=== PATIENT | male | born 1940 | race African-American/Black ===

== ENCOUNTER 2021-05-19 19:43 | Inpatient (IN) | payer BC ==
[~2021-05-19] VITALS: Ht 170.2 cm; Wt 61.2 kg
[2021-05-19 22:06] LABS: BASOPHILS % 0.5 % (0.0-2.0); EOSINOPHILS % 0.5 % (0.0-5.0); HEMATOCRIT. 36.8 % (42.0-52.0); LYMPHOCYTES % 22.6 % (20.0-50.0); MEAN CORPUSCULAR HEMOGLOBIN 29.9 pg (28.0-32.0); MEAN CORPUSCULAR VOLUME 91.8 fL (80.0-94.0); MEAN PLATELET VOLUME 9.2 fl (7.4-10.4); MONOCYTES % 9.4 % (2.0-8.0); PLATELET 214 x1000/uL (130-400); RED BLOOD CELL COUNT 4.01 mill/uL (4.7-6.1); RED CELL DISTRIBUTION WIDTH 13.3 % (11.6-14.6)
[2021-05-19 22:09] LABS: CHLORIDE 112 mEq/L (98-107)
[2021-05-20] MEDS ORDERED: DOCUSATE SODIUM 100MG CAPSULE PO PRN (00:45)
[2021-05-20] MEDS ORDERED: HYDROCODONE/ACETAMINOPHEN 5/325MG TABLET PO PRN (00:45)
[2021-05-20] MEDS ORDERED: ACETAMINOPHEN 325MG TABLET PO PRN (00:45)
[2021-05-20] MEDS ORDERED: CLONIDINE 0.1MG TABLET PO PRN (00:45)
[2021-05-20] MEDS ORDERED: ONDANSETRON HCL 4MG/2ML INJ IV PRN (00:45)
[2021-05-20] MEDS: SODIUM CHLORIDE 0.9% 1,000 ML IV SCH ×2 (01:00→14:05)
[2021-05-20] MEDS ORDERED: ENOXAPARIN 30MG/0.3ML SYR SUBCUT SCH (01:30)
[2021-05-20] MEDS: ENOXAPARIN 30MG/0.3ML SYR SUBCUT SCH (02:36)
[2021-05-20 08:00] VITALS: BP 145/80
[2021-05-20 12:00] VITALS: BP 155/65
[2021-05-20] MEDS ORDERED: SERT50TA MT (12:04)
[2021-05-20] MEDS ORDERED: ASPI-1497 MT (12:06)
[2021-05-20] MEDS ORDERED: PNEUMOCOCCAL 23-VAL P-SAC VAC 0.5 ML IM ONE (12:30)
[2021-05-20] MEDS ORDERED: LOSA50TA41 MT (13:22)
[2021-05-20] MEDS ORDERED: QUET50TA23 PO (13:35)
[2021-05-20] MEDS ORDERED: MELA10TA PO (13:35)
[2021-05-20] MEDS ORDERED: LOPHC2 MT (13:35)
[2021-05-20] MEDS ORDERED: MIRT7.5T11 PO (13:35)
[2021-05-20] MEDS ORDERED: DONE23TA3 MT (13:35)
[2021-05-20] MEDS: AMLODIPINE 5MG TABLET PO SCH ×2 (14:57→21:00)
[2021-05-20] MEDS: LORAZEPAM 2MG/ML CPJ IM PRN (15:19)
[2021-05-20 16:00] VITALS: BP 159/68
[2021-05-20 20:00] VITALS: BP 165/80
[2021-05-21] VITALS (9 sets, daily range): BP systolic 123–167; BP diastolic 67–94
[2021-05-21] MEDS: LORAZEPAM 2MG/ML CPJ IM PRN ×4 (00:01→08:47)
[2021-05-21] MEDS: ENOXAPARIN 30MG/0.3ML SYR SUBCUT SCH (02:12)
[2021-05-21] MEDS: SODIUM CHLORIDE 0.9% 1,000 ML IV SCH ×2 (02:13→20:56)
[2021-05-21 07:40] LABS: BASOPHILS % 0.5 % (0.0-2.0); EOSINOPHILS % 0.3 % (0.0-5.0); HEMATOCRIT. 43.8 % (42.0-52.0); HEMOGLOBIN. 14.7 g/dL (14.0-18.0); LYMPHOCYTES % 27.3 % (20.0-50.0); MEAN CORPUSCULAR HEMOGLOBIN 30.4 pg (28.0-32.0); MEAN CORPUSCULAR VOLUME 90.6 fL (80.0-94.0); MEAN PLATELET VOLUME 9.7 fl (7.4-10.4); MONOCYTES % 10.2 % (2.0-8.0); NEUTROPHILS % 61.7 % (40.0-76.0); PLATELET 268 x1000/uL (130-400); RED BLOOD CELL COUNT 4.84 mill/uL (4.7-6.1); RED CELL DISTRIBUTION WIDTH 13.5 % (11.6-14.6)
[2021-05-21 07:45] LABS: CHLORIDE 108 mEq/L (98-107)
[2021-05-21 08:07] LABS: LDL CHOLESTEROL 87 mg/dL (5-100)
[2021-05-21 08:09] LABS: HDL CHOLESTEROL 90 mg/dL (40-59); T4 FREE 1.25 ng/dL (0.76-1.46)
[2021-05-21] MEDS ORDERED: SERTRALINE HCL 50MG TABLET PO SCH (09:00)
[2021-05-21] MEDS ORDERED: METOPROLOL TARTRATE 100MG TABLET PO SCH (09:00)
[2021-05-21] MEDS ORDERED: LOSARTAN POTASSIUM 50 MG TABLET PO SCH (09:00)
[2021-05-21] MEDS ORDERED: QUETIAPINE FUMARATE 25MG TABLET PO SCH (09:00)
[2021-05-21] MEDS: ASPIRIN 81MG TABLET PO SCH (09:05)
[2021-05-21] MEDS: SERTRALINE HCL 50MG TABLET PO SCH ×2 (09:05→09:10)
[2021-05-21] MEDS: HYDROCHLOROTHIAZIDE 25MG TABLET PO SCH (09:06)
[2021-05-21] MEDS: AMLODIPINE 5MG TABLET PO SCH ×2 (09:14→20:59)
[2021-05-21] MEDS ORDERED: LORAZEPAM 2MG/ML CPJ IV NR (16:45)
[2021-05-21] MEDS: ARIPIPRAZOLE 2MG TABLET PO SCH (20:58)
[2021-05-21] MEDS ORDERED: DONEPEZIL HCL 5MG TABLET PO SCH (21:00)
[2021-05-22] VITALS: BP 150/73
[2021-05-22] MEDS: ENOXAPARIN 30MG/0.3ML SYR SUBCUT SCH (01:44)
[2021-05-22 04:00] VITALS: BP 173/96
[2021-05-22] MEDS: SODIUM CHLORIDE 0.9% 1,000 ML IV SCH (06:03)
[2021-05-22 08:17] LABS: VITAMIN B12 SERUM 971 pg/mL (211-911)
[2021-05-22] MEDS: ARIPIPRAZOLE 2MG TABLET PO SCH (09:00)
[2021-05-22] MEDS: AMLODIPINE 5MG TABLET PO SCH ×2 (09:49→20:57)
[2021-05-22] MEDS: ASPIRIN 81MG TABLET PO SCH (09:49)
[2021-05-22] MEDS: HYDROCHLOROTHIAZIDE 25MG TABLET PO SCH (09:49)
[2021-05-22] MEDS: SERTRALINE HCL 50MG TABLET PO SCH (09:50)
[2021-05-22 16:00] VITALS: BP 143/82
[2021-05-22] MEDS: LORAZEPAM 2MG/ML CPJ IM PRN (18:13)
[2021-05-22 20:00] VITALS: BP 172/97
[2021-05-22] MEDS: ARIPIPRAZOLE 5MG TABLET PO SCH (20:58)
[2021-05-23] VITALS: BP 140/82
[2021-05-23] MEDS: ENOXAPARIN 30MG/0.3ML SYR SUBCUT SCH (03:00)
[2021-05-23 04:00] VITALS: BP 155/97
[2021-05-23 08:00] VITALS: BP 142/95
[2021-05-23] MEDS: LORAZEPAM 2MG/ML CPJ IM PRN ×2 (08:49→21:14)
[2021-05-23] MEDS: ASPIRIN 81MG TABLET PO SCH (08:50)
[2021-05-23] MEDS: HYDROCHLOROTHIAZIDE 25MG TABLET PO SCH (08:50)
[2021-05-23] MEDS: ARIPIPRAZOLE 5MG TABLET PO SCH ×2 (08:50→21:13)
[2021-05-23] MEDS: SERTRALINE HCL 50MG TABLET PO SCH (08:50)
[2021-05-23] MEDS: AMLODIPINE 5MG TABLET PO SCH ×2 (08:50→21:14)
[2021-05-23] MEDS: LOSARTAN POTASSIUM 100 MG TABLET PO SCH (08:50)
[2021-05-23 12:00] VITALS: BP 155/89
[2021-05-23 16:00] VITALS: BP 144/80
[2021-05-23 20:00] VITALS: BP 149/85
[2021-05-24] VITALS: BP 158/91
[2021-05-24] MEDS: ENOXAPARIN 30MG/0.3ML SYR SUBCUT SCH (02:40)
[2021-05-24 04:00] VITALS: BP 139/78
[2021-05-24 08:00] VITALS: BP 140/86
[2021-05-24] MEDS: LOSARTAN POTASSIUM 100 MG TABLET PO SCH (08:46)
[2021-05-24] MEDS: ARIPIPRAZOLE 5MG TABLET PO SCH ×2 (08:46→20:45)
[2021-05-24] MEDS: HYDROCHLOROTHIAZIDE 25MG TABLET PO SCH (08:46)
[2021-05-24] MEDS: ASPIRIN 81MG TABLET PO SCH (08:46)
[2021-05-24] MEDS: SERTRALINE HCL 50MG TABLET PO SCH (08:46)
[2021-05-24] MEDS: AMLODIPINE 5MG TABLET PO SCH ×2 (08:46→20:45)
[2021-05-24 12:00] VITALS: BP 135/81
[2021-05-24 16:00] VITALS: BP 130/76
[2021-05-24 20:00] VITALS: BP 120/61
[2021-05-24] MEDS: LORAZEPAM 2MG/ML CPJ IM PRN (23:23)
[2021-05-25] VITALS: BP 133/73
[2021-05-25] MEDS: ENOXAPARIN 30MG/0.3ML SYR SUBCUT SCH (03:00)
[2021-05-25 04:00] VITALS: BP 125/75
[2021-05-25 08:00] VITALS: BP 117/69
[2021-05-25] MEDS: ASPIRIN 81MG TABLET PO SCH (09:00)
[2021-05-25] MEDS: ARIPIPRAZOLE 5MG TABLET PO SCH (09:00)
[2021-05-25] MEDS: HYDROCHLOROTHIAZIDE 25MG TABLET PO SCH (09:00)
[2021-05-25] MEDS: LOSARTAN POTASSIUM 100 MG TABLET PO SCH (09:00)
[2021-05-25] MEDS: MULTIVITAMINS,THER W-MINERALS TABLET PO SCH ×2 (09:00→09:01)
[2021-05-25] MEDS: AMLODIPINE 5MG TABLET PO SCH (09:01)
[2021-05-25] MEDS: SERTRALINE HCL 50MG TABLET PO SCH (09:01)
[2021-05-25] MEDS ORDERED: AMLO10TA4 MT (11:12)
[2021-05-25] MEDS ORDERED: SERT50TA MT (11:13)
[2021-05-25] MEDS ORDERED: AMLO10TA4 PO (11:14)
[2021-05-25 11:17] VITALS: BP 117/69
== END 2021-05-25 12:06 | disposition home or self-care (01) | DRG 73 ==
LOC: ER 19:43 → 8WST 22:13 → ENRESERV 05-20 07:18
PROVIDERS: ADMIT Hospitalist; ATTEND Hospitalist
DX: G90.8 Other disorders of autonomic nervous system (principal); N17.0 Acute kidney failure with tubular necrosis; F02.81 Dementia in other diseases classified elsewhere, unspecified severity, with behavioral disturbance; I95.9 Hypotension, unspecified; I11.9 Hypertensive heart disease without heart failure; G30.9 Alzheimer's disease, unspecified; Z79.82 Long term (current) use of aspirin; Z79.899 Other long term (current) drug therapy; Z78.1 Physical restraint status
CPT/HCPCS: 36415; 71045; 80053; 80061; 82607; 83880; 84439; 84443; 84484; 85025; 90732; 93005; 93306; 93970; 97162; 99285; J1650; J2060

== ENCOUNTER 2021-05-26 20:03 | Inpatient (IN) | payer BC ==
[~2021-05-26] VITALS: Ht 170.2 cm; Wt 63.0 kg
[~2021-05-26 20:03] MED LIST: AMLO10TA4 MT; AMLO10TA4 PO; ASPI-1497 MT; DONE23TA3 MT; LOPHC2 MT; LOSA50TA41 MT; MELA10TA PO; MIRT7.5T11 PO; QUET50TA23 PO; SERT50TA MT
[2021-05-26] MEDS ORDERED: SODIUM CHLORIDE 0.9% 1,000 ML IV ONE (20:15)
[2021-05-26] MEDS ORDERED: LEVOFLOXACIN 500MG PREMIX 100 ML IV ONE (20:30)
[2021-05-26] MEDS ORDERED: SODIUM CHLORIDE 0.9% 1000ML BAG (SEPSIS BOLUS) IV ONE (20:30)
[2021-05-26] MEDS ORDERED: PIPERACILLIN/TAZ 3.375G PREMIX 50 ML IV ONE (20:30)
[2021-05-26 20:50] LABS: BASOPHILS % 0.4 % (0.0-2.0); EOSINOPHILS % 0.4 % (0.0-5.0); HEMATOCRIT. 39.6 % (42.0-52.0); HEMOGLOBIN. 13.1 g/dL (14.0-18.0); MEAN CORPUSCULAR HEMOGLOBIN 30.2 pg (28.0-32.0); MEAN CORPUSCULAR VOLUME 91.5 fL (80.0-94.0); MEAN PLATELET VOLUME 10.1 fl (7.4-10.4); MONOCYTES % 11.8 % (2.0-8.0); NEUTROPHILS % 52.4 % (40.0-76.0); PLATELET 224 x1000/uL (130-400); RED BLOOD CELL COUNT 4.33 mill/uL (4.7-6.1); RED CELL DISTRIBUTION WIDTH 13.6 % (11.6-14.6)
[2021-05-26 20:59] LABS: CHLORIDE 104 mEq/L (98-107)
[2021-05-26 21:00] LABS: PROTHROMBIN TIME 10.9 sec (9.6-11.0)
[2021-05-26] MEDS ORDERED: LORAZEPAM 2MG/ML CPJ IV ONE (21:00)
[2021-05-26 21:03] LABS: ETHANOL BLOOD < 10 mg/dL
[2021-05-26 22:02] LABS: CLARITY URINE CLEAR (CLEAR); COLOR URINE YELLOW (YELLOW); KETONES URINE NEGATIVE (NEGATIVE); LEUKOCYTE ESTERASE URINE NEGATIVE (NEGATIVE); NITRITE URINE NEGATIVE (NEGATIVE); OCCULT BLOOD URINE NEGATIVE (NEGATIVE); PROTEIN URINE TRACE (NEGATIVE); SPECIFIC GRAVITY URINE 1.016 (1.005-1.030); UROBILINOGEN URINE 0.2 E.U./dL (0.2-1.0)
[2021-05-26 22:20] LABS: *AMPHETAMINES SCREEN URINE NEGATIVE (NEGATIVE); *BARBITURATES SCREEN URINE NEGATIVE (NEGATIVE); *BENZODIAZEPINES SCREEN URINE NEGATIVE (NEGATIVE); *COCAINE SCREEN URINE NEGATIVE (NEGATIVE); CANNABINOID URINE SCREEN NEGATIVE (NEGATIVE); METHADONE URINE SCREEN NEGATIVE (NEGATIVE); OPIATES URINE SCREEN NEGATIVE (NEGATIVE); PHENCYCLIDINE URINE SCREEN NEGATIVE (NEGATIVE)
[2021-05-27] VITALS (8 sets, daily range): BP systolic 99–140; BP diastolic 49–76
[2021-05-27] MEDS ORDERED: ACETAMINOPHEN 325MG TABLET PO PRN (04:30)
[2021-05-27] MEDS ORDERED: MAGNESIUM/ALUMINUM HYDROXIDE/SIMETHICONE 30ML UDC PO PRN (04:30)
[2021-05-27] MEDS ORDERED: ENOXAPARIN 40MG/0.4ML SYR SUBCUT SCH (04:30)
[2021-05-27] MEDS: DEXT 5%/0.45% NACL 1000ML 1,000 ML IV SCH ×2 (05:30→17:24)
[2021-05-27] MEDS: ENOXAPARIN 30MG/0.3ML SYR SUBCUT SCH (09:49)
[2021-05-27] MEDS: ARIPIPRAZOLE 5MG TABLET PO SCH ×2 (12:14→17:23)
[2021-05-27] MEDS: SERTRALINE HCL 50MG TABLET PO SCH (12:14)
[2021-05-27 17:03] LABS: CHLORIDE 107 mEq/L (98-107)
[2021-05-28] VITALS (12 sets, daily range): BP systolic 103–165; BP diastolic 65–99
[2021-05-28] MEDS: LORAZEPAM 2MG/ML CPJ IV PRN ×3 (03:23→21:09)
[2021-05-28 08:33] LABS: BASOPHILS % 0.5 % (0.0-2.0); EOSINOPHILS % 0.5 % (0.0-5.0); HEMATOCRIT. 40.4 % (42.0-52.0); HEMOGLOBIN. 13.5 g/dL (14.0-18.0); LYMPHOCYTES % 41.2 % (20.0-50.0); MEAN CORPUSCULAR HEMOGLOBIN 29.6 pg (28.0-32.0); MEAN CORPUSCULAR VOLUME 88.8 fL (80.0-94.0); MEAN PLATELET VOLUME 9.7 fl (7.4-10.4); MONOCYTES % 11.2 % (2.0-8.0); NEUTROPHILS % 46.6 % (40.0-76.0); PLATELET 255 x1000/uL (130-400); RED BLOOD CELL COUNT 4.55 mill/uL (4.7-6.1)
[2021-05-28] MEDS: ARIPIPRAZOLE 5MG TABLET PO SCH ×2 (09:20→18:09)
[2021-05-28] MEDS: SERTRALINE HCL 50MG TABLET PO SCH (09:21)
[2021-05-28 09:26] LABS: CHLORIDE 106 mEq/L (98-107)
[2021-05-28] MEDS: ENOXAPARIN 30MG/0.3ML SYR SUBCUT SCH (09:37)
[2021-05-28] MEDS: ONDANSETRON HCL 4MG/2ML INJ IV PRN ×2 (09:37→18:08)
[2021-05-28] MEDS: CLONIDINE 0.1MG TABLET PO PRN (10:15)
[2021-05-28] MEDS ORDERED: CEFTRIAXONE 1 G PREMIX 50 ML IV SCH (19:30)
[2021-05-28] MEDS: CEFTRIAXONE 1,000 MG in DEXTROSE 5% WATER 50 ML IV SCH (21:07)
[2021-05-28] MEDS: DEXT 5%/0.45% NACL 1000ML 1,000 ML IV SCH (21:09)
[2021-05-29] VITALS (12 sets, daily range): BP systolic 125–163; BP diastolic 70–125
[2021-05-29] MEDS: LORAZEPAM 2MG/ML CPJ IV PRN ×2 (04:08→16:31)
[2021-05-29] MEDS: MEMANTINE HCL 5MG TABLET PO SCH (08:55)
[2021-05-29] MEDS: SERTRALINE HCL 50MG TABLET PO SCH (08:55)
[2021-05-29] MEDS: ARIPIPRAZOLE 5MG TABLET PO SCH ×2 (08:55→17:20)
[2021-05-29] MEDS: ONDANSETRON HCL 4MG/2ML INJ IV PRN ×3 (08:55→17:14)
[2021-05-29] MEDS: ENOXAPARIN 40MG/0.4ML SYR SUBCUT SCH (08:56)
[2021-05-29] MEDS: DEXT 5%/0.45% NACL 1000ML 1,000 ML IV SCH ×2 (16:56→23:10)
[2021-05-29] MEDS: CEFTRIAXONE 1,000 MG in DEXTROSE 5% WATER 50 ML IV SCH (20:06)
[2021-05-30] VITALS (10 sets, daily range): BP systolic 139–181; BP diastolic 78–101
[2021-05-30] MEDS: ONDANSETRON HCL 4MG/2ML INJ IV PRN ×2 (01:37→23:28)
[2021-05-30] MEDS: LORAZEPAM 2MG/ML CPJ IV PRN (04:22)
[2021-05-30] MEDS: ARIPIPRAZOLE 5MG TABLET PO SCH (08:39)
[2021-05-30] MEDS: MEMANTINE HCL 5MG TABLET PO SCH (08:39)
[2021-05-30] MEDS: SERTRALINE HCL 50MG TABLET PO SCH (08:39)
[2021-05-30] MEDS: ENOXAPARIN 40MG/0.4ML SYR SUBCUT SCH (09:15)
[2021-05-30] MEDS: DEXT 5%/0.45% NACL 1000ML 1,000 ML IV SCH (11:06)
[2021-05-30] MEDS: CEFTRIAXONE 1,000 MG in DEXTROSE 5% WATER 50 ML IV SCH (19:06)
[2021-05-30] MEDS: HYDROXYZINE 10 MG TABLET PO SCH (20:03)
[2021-05-31] VITALS (12 sets, daily range): BP systolic 118–172; BP diastolic 69–107
[2021-05-31] MEDS: DEXT 5%/0.45% NACL 1000ML 1,000 ML IV SCH ×2 (02:01→15:44)
[2021-05-31] MEDS: ENOXAPARIN 40MG/0.4ML SYR SUBCUT SCH (08:57)
[2021-05-31] MEDS: ARIPIPRAZOLE 5MG TABLET PO SCH (08:57)
[2021-05-31] MEDS: MEMANTINE HCL 5MG TABLET PO SCH (08:57)
[2021-05-31] MEDS: SERTRALINE HCL 50MG TABLET PO SCH (08:57)
[2021-05-31] MEDS: CEFTRIAXONE 1,000 MG in DEXTROSE 5% WATER 50 ML IV SCH (20:13)
[2021-05-31] MEDS: HYDROXYZINE 10 MG TABLET PO SCH (20:25)
[2021-06-01] VITALS (12 sets, daily range): BP systolic 122–173; BP diastolic 74–117
[2021-06-01] MEDS: DEXT 5%/0.45% NACL 1000ML 1,000 ML IV SCH ×2 (04:18→17:24)
[2021-06-01] MEDS: ENOXAPARIN 40MG/0.4ML SYR SUBCUT SCH ×2 (09:00→12:43)
[2021-06-01] MEDS: MEMANTINE HCL 5MG TABLET PO SCH (10:50)
[2021-06-01] MEDS: ARIPIPRAZOLE 5MG TABLET PO SCH (10:50)
[2021-06-01] MEDS: SERTRALINE HCL 50MG TABLET PO SCH (10:50)
[2021-06-01] MEDS: HYDROXYZINE 10 MG TABLET PO SCH (20:17)
[2021-06-01] MEDS: CEFTRIAXONE 1,000 MG in DEXTROSE 5% WATER 50 ML IV SCH (20:17)
[2021-06-02] VITALS (9 sets, daily range): BP systolic 130–165; BP diastolic 26–98
[2021-06-02] MEDS: SERTRALINE HCL 50MG TABLET PO SCH (08:50)
[2021-06-02] MEDS: MEMANTINE HCL 5MG TABLET PO SCH (08:50)
[2021-06-02] MEDS: ARIPIPRAZOLE 5MG TABLET PO SCH (08:50)
[2021-06-02] MEDS: DEXT 5%/0.45% NACL 1000ML 1,000 ML IV SCH ×2 (19:16→20:01)
[2021-06-02] MEDS: CEFTRIAXONE 1,000 MG in DEXTROSE 5% WATER 50 ML IV SCH (19:43)
[2021-06-02] MEDS: HYDROXYZINE 10 MG TABLET PO SCH (20:01)
[2021-06-03] VITALS (7 sets, daily range): BP systolic 134–168; BP diastolic 77–95
[2021-06-03] MEDS: SERTRALINE HCL 50MG TABLET PO SCH (08:29)
[2021-06-03] MEDS: MEMANTINE HCL 5MG TABLET PO SCH (08:29)
[2021-06-03] MEDS: ENOXAPARIN 40MG/0.4ML SYR SUBCUT SCH (08:40)
[2021-06-03] MEDS: DEXT 5%/0.45% NACL 1000ML 1,000 ML IV SCH ×2 (09:19→22:00)
[2021-06-03 11:43] LABS: BASOPHILS % 0.6 % (0.0-2.0); EOSINOPHILS % 0.3 % (0.0-5.0); HEMATOCRIT. 40.1 % (42.0-52.0); HEMOGLOBIN. 13.4 g/dL (14.0-18.0); LYMPHOCYTES % 21.3 % (20.0-50.0); MEAN CORPUSCULAR HEMOGLOBIN 29.6 pg (28.0-32.0); MEAN CORPUSCULAR VOLUME 88.3 fL (80.0-94.0); MEAN PLATELET VOLUME 10.1 fl (7.4-10.4); NEUTROPHILS % 66.8 % (40.0-76.0); PLATELET 282 x1000/uL (130-400); RED BLOOD CELL COUNT 4.54 mill/uL (4.7-6.1); RED CELL DISTRIBUTION WIDTH 13.2 % (11.6-14.6)
[2021-06-03 11:54] LABS: CHLORIDE 102 mEq/L (98-107)
[2021-06-03] MEDS: HYDROXYZINE 10 MG TABLET PO SCH (20:22)
[2021-06-03] MEDS: ARIPIPRAZOLE 5MG TABLET PO SCH (20:23)
[2021-06-04] VITALS: BP 127/81
[2021-06-04 04:00] VITALS: BP 160/84
[2021-06-04 06:53] LABS: VITAMIN B12 SERUM 995 pg/mL (211-911)
[2021-06-04 08:00] VITALS: BP 147/89
[2021-06-04] MEDS: MEMANTINE HCL 5MG TABLET PO SCH (08:51)
[2021-06-04] MEDS: SERTRALINE HCL 50MG TABLET PO SCH (08:51)
[2021-06-04] MEDS: ENOXAPARIN 40MG/0.4ML SYR SUBCUT SCH (08:51)
[2021-06-04] MEDS: DEXT 5%/0.45% NACL 1000ML 1,000 ML IV SCH (11:56)
[2021-06-04 11:57] VITALS: BP_SYST 146; BP_SYST 154; BP_DIAS 86; BP_DIAS 90
[2021-06-04 15:56] VITALS: BP 148/70
[2021-06-04 20:00] VITALS: BP 124/68
[2021-06-04] MEDS: ARIPIPRAZOLE 5MG TABLET PO SCH (20:45)
[2021-06-04] MEDS: HYDROXYZINE 10 MG TABLET PO SCH (20:45)
[2021-06-05] VITALS: BP 151/75
[2021-06-05] MEDS: DEXT 5%/0.45% NACL 1000ML 1,000 ML IV SCH ×2 (02:11→17:00)
[2021-06-05 04:00] VITALS: BP 140/87
[2021-06-05 08:00] VITALS: BP 141/78
[2021-06-05] MEDS: ENOXAPARIN 40MG/0.4ML SYR SUBCUT SCH (08:39)
[2021-06-05] MEDS: MEMANTINE HCL 5MG TABLET PO SCH (08:39)
[2021-06-05] MEDS: SERTRALINE HCL 50MG TABLET PO SCH (08:39)
[2021-06-05 12:00] VITALS: BP 151/77
[2021-06-05 16:00] VITALS: BP 145/80
[2021-06-05 20:00] VITALS: BP 135/90
[2021-06-05] MEDS: ARIPIPRAZOLE 5MG TABLET PO SCH (20:51)
[2021-06-05] MEDS: ONDANSETRON HCL 4MG/2ML INJ IV PRN (22:43)
[2021-06-06] VITALS: BP 147/73
[2021-06-06 04:00] VITALS: BP 159/73
[2021-06-06] MEDS: DEXT 5%/0.45% NACL 1000ML 1,000 ML IV SCH ×2 (05:18→17:55)
[2021-06-06 08:00] VITALS: BP 173/109
[2021-06-06] MEDS: MEMANTINE HCL 5MG TABLET PO SCH (09:03)
[2021-06-06] MEDS: SERTRALINE HCL 50MG TABLET PO SCH (09:03)
[2021-06-06] MEDS: ENOXAPARIN 40MG/0.4ML SYR SUBCUT SCH (09:04)
[2021-06-06 12:00] VITALS: BP 148/116
[2021-06-06] MEDS: ARIPIPRAZOLE 5MG TABLET PO SCH (19:58)
[2021-06-06 20:00] VITALS: BP 150/80
[2021-06-07] VITALS: BP 164/99
[2021-06-07] MEDS: CLONIDINE 0.1MG TABLET PO PRN (00:01)
[2021-06-07 04:00] VITALS: BP 132/74
[2021-06-07] MEDS: DEXT 5%/0.45% NACL 1000ML 1,000 ML IV SCH ×2 (04:12→19:54)
[2021-06-07 08:00] VITALS: BP 131/82
[2021-06-07] MEDS: MEMANTINE HCL 5MG TABLET PO SCH (09:50)
[2021-06-07] MEDS: ENOXAPARIN 40MG/0.4ML SYR SUBCUT SCH (09:50)
[2021-06-07] MEDS: SERTRALINE HCL 50MG TABLET PO SCH (09:50)
[2021-06-07 12:00] VITALS: BP 129/75
[2021-06-07 16:00] VITALS: BP 119/64
[2021-06-07] MEDS: ARIPIPRAZOLE 5MG TABLET PO SCH (19:53)
[2021-06-07 20:00] VITALS: BP 146/91
[2021-06-08] VITALS: BP 160/93
[2021-06-08] MEDS: ONDANSETRON HCL 4MG/2ML INJ IV PRN (00:17)
[2021-06-08] MEDS: CLONIDINE 0.1MG TABLET PO PRN (00:17)
[2021-06-08 04:00] VITALS: BP 129/67
[2021-06-08 08:00] VITALS: BP 147/71
[2021-06-08] MEDS: SERTRALINE HCL 50MG TABLET PO SCH (10:29)
[2021-06-08] MEDS: MEMANTINE HCL 5MG TABLET PO SCH (10:29)
[2021-06-08] MEDS: ENOXAPARIN 40MG/0.4ML SYR SUBCUT SCH (10:29)
[2021-06-08] MEDS: DEXT 5%/0.45% NACL 1000ML 1,000 ML IV SCH (10:33)
[2021-06-08 12:00] VITALS: BP 127/65
[2021-06-08 16:00] VITALS: BP 139/72
[2021-06-08 18:17] LABS: CHLORIDE 107 mEq/L (98-107)
[2021-06-08 20:00] VITALS: BP 160/84
[2021-06-08] MEDS: ARIPIPRAZOLE 5MG TABLET PO SCH (23:49)
[2021-06-09] VITALS: BP 156/80
[2021-06-09 04:00] VITALS: BP 98/61
[2021-06-09 08:00] VITALS: BP 158/108
[2021-06-09] MEDS: SERTRALINE HCL 50MG TABLET PO SCH (08:43)
[2021-06-09] MEDS: MEMANTINE HCL 5MG TABLET PO SCH (08:43)
[2021-06-09] MEDS: ENOXAPARIN 40MG/0.4ML SYR SUBCUT SCH (08:43)
[2021-06-09 12:00] VITALS: BP 152/71
[2021-06-09] MEDS: DEXT 5%/0.45% NACL 1000ML 1,000 ML IV SCH (13:51)
[2021-06-09] MEDS: LORAZEPAM 2MG/ML CPJ IV PRN ×2 (14:48→21:38)
[2021-06-09 16:00] VITALS: BP 149/68
[2021-06-09 20:00] VITALS: BP 163/93
[2021-06-09] MEDS: ARIPIPRAZOLE 5MG TABLET PO SCH (20:33)
[2021-06-10] VITALS (7 sets, daily range): BP systolic 131–183; BP diastolic 77–96
[2021-06-10] MEDS: CLONIDINE 0.1MG TABLET PO PRN ×3 (01:04→23:32)
[2021-06-10] MEDS: DEXT 5%/0.45% NACL 1000ML 1,000 ML IV SCH ×3 (03:56→23:38)
[2021-06-10 08:03] LABS: HEMATOCRIT 34.6 % (42.0-52.0); HEMOGLOBIN 11.9 g/dL (14.0-18.0); MEAN CORPUSCULAR HEMOGLOBIN 30.3 pg (28.0-32.0); MEAN CORPUSCULAR VOLUME 88.5 fL (80.0-94.0); PLATELET 302 x1000/uL (130-400); RED BLOOD CELL COUNT 3.91 mill/uL (4.7-6.1); RED CELL DISTRIBUTION WIDTH 13.1 % (11.6-14.6)
[2021-06-10 08:15] LABS: CHLORIDE 105 mEq/L (98-107)
[2021-06-10] MEDS: SERTRALINE HCL 50MG TABLET PO SCH (10:42)
[2021-06-10] MEDS: MEMANTINE HCL 5MG TABLET PO SCH (10:42)
[2021-06-10] MEDS: ENOXAPARIN 40MG/0.4ML SYR SUBCUT SCH (10:42)
[2021-06-10] MEDS: ARIPIPRAZOLE 5MG TABLET PO SCH (20:44)
[2021-06-10] MEDS: LORAZEPAM 2MG/ML CPJ IV PRN (21:40)
[2021-06-11] VITALS: BP 174/103
[2021-06-11 04:00] VITALS: BP 149/80
[2021-06-11 08:00] VITALS: BP 147/71
[2021-06-11] MEDS: ENOXAPARIN 40MG/0.4ML SYR SUBCUT SCH (10:36)
[2021-06-11] MEDS: MEMANTINE HCL 5MG TABLET PO SCH (10:36)
[2021-06-11] MEDS: SERTRALINE HCL 50MG TABLET PO SCH (10:36)
[2021-06-11 12:00] VITALS: BP 137/76
[2021-06-11 16:00] VITALS: BP 134/73
[2021-06-11] MEDS: DEXT 5%/0.45% NACL 1000ML 1,000 ML IV SCH (17:05)
[2021-06-11] MEDS: LORAZEPAM 2MG/ML CPJ IV PRN (17:37)
[2021-06-11] MEDS ORDERED: HALOPERIDOL LACTATE 5MG/ML VIAL IM PRN (18:00)
[2021-06-11 20:00] VITALS: BP 152/91
[2021-06-11] MEDS: ARIPIPRAZOLE 5MG TABLET PO SCH (20:25)
[2021-06-12] VITALS: BP 196/97
[2021-06-12] MEDS: CLONIDINE 0.1MG TABLET PO PRN (00:21)
[2021-06-12 04:00] VITALS: BP 163/78
[2021-06-12] MEDS: DEXT 5%/0.45% NACL 1000ML 1,000 ML IV SCH (06:11)
[2021-06-12 08:00] VITALS: BP 150/66
[2021-06-12] MEDS: SERTRALINE HCL 50MG TABLET PO SCH (08:32)
[2021-06-12] MEDS: MEMANTINE HCL 5MG TABLET PO SCH (08:32)
[2021-06-12] MEDS: ENOXAPARIN 40MG/0.4ML SYR SUBCUT SCH (08:32)
[2021-06-12 12:00] VITALS: BP 145/80
== END 2021-06-12 17:05 | disposition hospice, home (50) | DRG 57 ==
LOC: ER 20:03 → MICUSO 21:54 → EDBEDREQ 22:07 → EDBEDREQSVC 22:07 → EDBEDREQTM 22:07 → 5EST 05-27 07:38 → 8WST 06-08 12:06
PROVIDERS: ADMIT Hospitalist; ATTEND Hospitalist
PROC: 4A10X4Z Monitoring of Central Nervous Electrical Activity, External Approach (ICD-10-PCS; principal; 2021-05-31)
DX: G30.9 Alzheimer's disease, unspecified (principal); G93.40 Encephalopathy, unspecified; N17.9 Acute kidney failure, unspecified; F02.81 Dementia in other diseases classified elsewhere, unspecified severity, with behavioral disturbance; R78.81 Bacteremia; I95.9 Hypotension, unspecified; I73.9 Peripheral vascular disease, unspecified; I10 Essential (primary) hypertension; I34.0 Nonrheumatic mitral (valve) insufficiency; I36.1 Nonrheumatic tricuspid (valve) insufficiency; I27.20 Pulmonary hypertension, unspecified; R62.7 Adult failure to thrive; Z86.73 Personal history of transient ischemic attack (TIA), and cerebral infarction without residual deficits; Z79.899 Other long term (current) drug therapy; Z51.5 Encounter for palliative care; Z68.21 Body mass index [BMI] 21.0-21.9, adult
CPT/HCPCS: 36415; 71045; 80048; 80053; 80305; 80307; 80320; 80329; 81003; 82140; 82607; 82962; 83605; 83880; 84145; 84443; 84484; 85025; 85027; 86850; 86900; 93005; 93970; 95816; 97116; 97162; 97166; 97530; 99291; C1893; J0696; J1630; J1650; J1956; J2060; J2405; J2543; J7030; J7060; J7070; G0480

== ENCOUNTER 2022-10-01 09:46 | Inpatient (IN) | payer BC ==
[~2022-10-01] VITALS: Ht 165.1 cm; Wt 54.5 kg
[~2022-10-01 09:46] MED LIST changes: +ASPI-1497 PO; +AZIT250T12 MT; +DONE5TAB7 PO; +LOSA100T4 PO; +LOSA25TA26 PO; -MELA10TA PO; +MELATONIN10 MG PO; +MEMA5TAB42 PO; +METO-539 PO
[2022-10-01] MEDS: DEXT 5%/0.45% NACL 1000ML 1,000 ML IV SCH (11:15)
[2022-10-01] MEDS ORDERED: TRAMADOL 50MG TABLET PO PRN (11:15)
[2022-10-01] MEDS ORDERED: ACETAMINOPHEN 325MG TABLET PO PRN (11:15)
[2022-10-01] MEDS ORDERED: ONDANSETRON HCL 4MG/2ML INJ IV PRN (11:15)
[2022-10-01] MEDS ORDERED: PANTOPRAZOLE SODIUM 40 MG/VIAL IV SCH (11:15)
[2022-10-01 11:47] LABS: BASOPHILS % 0.3 % (0.0-2.0); HEMATOCRIT. 43.3 % (42.0-52.0); HEMOGLOBIN. 14.3 g/dL (14.0-18.0); LYMPHOCYTES % 14.7 % (20.0-50.0); MEAN CORPUSCULAR HEMOGLOBIN 29.5 pg (28.0-32.0); MEAN CORPUSCULAR VOLUME 89.3 fL (80.0-94.0); MEAN PLATELET VOLUME 9.6 fl (7.4-10.4); MONOCYTES % 9.7 % (2.0-8.0); NEUTROPHILS % 75.3 % (40.0-76.0); PLATELET 246 x1000/uL (130-400); RED BLOOD CELL COUNT 4.85 mill/uL (4.7-6.1); RED CELL DISTRIBUTION WIDTH 13.3 % (11.6-14.6)
[2022-10-01 11:56] LABS: CHLORIDE 114 mEq/L (98-107)
[2022-10-01 11:58] LABS: INR 1.1; PROTHROMBIN TIME 11.4 sec (9.6-11.0)
[2022-10-01 12:04] LABS: ETHANOL BLOOD < 10 mg/dL; TOTAL IRON BINDING CAPACITY 244 ug/dL (250-450)
[2022-10-01] MEDS ORDERED: IOHEXOL-300 100 ML BOTTLE ONE (14:05)
[2022-10-01] MEDS: PANTOPRAZOLE SODIUM 40 MG/VIAL IV SCH (14:27)
[2022-10-01] MEDS ORDERED: NALOXONE HCL 0.4MG/ML VIAL IV PRN (14:45)
[2022-10-01 15:50] LABS: FERRITIN 113 ng/mL (22-322)
[2022-10-01 16:05] LABS: FOLIC ACID (FOLATE) SERUM > 20.00 ng/mL (>5.38); VITAMIN B12 SERUM > 2000.0 pg/mL (211-911)
[2022-10-01 19:00] LABS: HEMATOCRIT 39.7 % (42.0-52.0); HEMOGLOBIN 13.1 g/dL (14.0-18.0)
[2022-10-01 23:22] VITALS: BP 150/105
[2022-10-02] MEDS: DEXT 5%/0.45% NACL 1000ML 1,000 ML IV SCH ×2 (00:35→14:28)
[2022-10-02] MEDS: PANTOPRAZOLE SODIUM 40 MG/VIAL IV SCH ×2 (02:33→14:27)
[2022-10-02 04:00] VITALS: BP 150/93
[2022-10-02 06:04] LABS: BASOPHILS % 0.4 % (0.0-2.0); EOSINOPHILS % 0.2 % (0.0-5.0); HEMATOCRIT. 40.6 % (42.0-52.0); HEMOGLOBIN. 13.4 g/dL (14.0-18.0); LYMPHOCYTES % 30.2 % (20.0-50.0); MEAN CORPUSCULAR HEMOGLOBIN 29.3 pg (28.0-32.0); MEAN CORPUSCULAR VOLUME 88.9 fL (80.0-94.0); MONOCYTES % 13.3 % (2.0-8.0); NEUTROPHILS % 55.9 % (40.0-76.0); PLATELET 240 x1000/uL (130-400); RED BLOOD CELL COUNT 4.57 mill/uL (4.7-6.1); RED CELL DISTRIBUTION WIDTH 13.1 % (11.6-14.6)
[2022-10-02 08:00] VITALS: BP 140/68
[2022-10-02] MEDS: LORAZEPAM 2MG/ML CPJ IV PRN ×2 (08:36→21:11)
[2022-10-02 09:33] LABS: CHLORIDE 112 mEq/L (98-107)
[2022-10-02 09:43] LABS: HDL CHOLESTEROL 82 mg/dL (40-59); LDL CHOLESTEROL 43 mg/dL (5-100)
[2022-10-02] MEDS: AMLODIPINE 10MG TABLET PO SCH (11:00)
[2022-10-02 11:52] LABS: CHLORIDE 113 mEq/L (98-107)
[2022-10-02 12:00] VITALS: BP 138/74
[2022-10-02 12:56] LABS: HEMOGLOBIN 13.2 g/dL (14.0-18.0)
[2022-10-02] MEDS: DONEPEZIL HCL 5MG TABLET PO SCH (14:27)
[2022-10-02 16:00] VITALS: BP 130/81
[2022-10-02 20:00] VITALS: BP 147/86
[2022-10-03] VITALS: BP 142/75
[2022-10-03] MEDS: PANTOPRAZOLE SODIUM 40 MG/VIAL IV SCH ×2 (02:46→14:30)
[2022-10-03] MEDS: DEXT 5%/0.45% NACL 1000ML 1,000 ML IV SCH ×2 (02:47→17:37)
[2022-10-03 06:32] LABS: INR 1.1; PROTHROMBIN TIME 11.4 sec (9.6-11.0)
[2022-10-03 06:37] LABS: HEMATOCRIT. 37.7 % (42.0-52.0); HEMOGLOBIN. 12.7 g/dL (14.0-18.0); MEAN CORPUSCULAR HEMOGLOBIN 29.9 pg (28.0-32.0); MEAN CORPUSCULAR VOLUME 88.5 fL (80.0-94.0); MEAN PLATELET VOLUME 9.8 fl (7.4-10.4); PLATELET 205 x1000/uL (130-400); RED BLOOD CELL COUNT 4.26 mill/uL (4.7-6.1)
[2022-10-03 08:00] VITALS: BP 122/89
[2022-10-03] MEDS: DONEPEZIL HCL 5MG TABLET PO SCH (08:38)
[2022-10-03] MEDS: AMLODIPINE 10MG TABLET PO SCH (08:39)
[2022-10-03 09:27] LABS: CHLORIDE 113 mEq/L (98-107)
[2022-10-03 12:00] VITALS: BP 133/86
[2022-10-03 12:04] LABS: PLATELET ESTIMATE NORMAL
[2022-10-03 14:18] VITALS: BP 122/89
[2022-10-03 16:00] VITALS: BP 128/83
[2022-10-03 20:00] VITALS: BP 127/80
[2022-10-04] VITALS (45 sets, daily range): BP systolic 57–141; BP diastolic 31–76
[2022-10-04] MEDS: PANTOPRAZOLE SODIUM 40 MG/VIAL IV SCH ×2 (01:25→16:48)
[2022-10-04] MEDS: DEXT 5%/0.45% NACL 1000ML 1,000 ML IV SCH ×2 (01:26→16:47)
[2022-10-04 06:16] LABS: HEMATOCRIT. 37.1 % (42.0-52.0); HEMOGLOBIN. 12.4 g/dL (14.0-18.0); MEAN CORPUSCULAR HEMOGLOBIN 29.5 pg (28.0-32.0); MEAN CORPUSCULAR VOLUME 88.6 fL (80.0-94.0); MEAN PLATELET VOLUME 10.3 fl (7.4-10.4); PLATELET 141 x1000/uL (130-400); RED BLOOD CELL COUNT 4.18 mill/uL (4.7-6.1); RED CELL DISTRIBUTION WIDTH 12.9 % (11.6-14.6)
[2022-10-04 07:59] LABS: CHLORIDE 109 mEq/L (98-107)
[2022-10-04] MEDS: AMLODIPINE 10MG TABLET PO SCH (09:00)
[2022-10-04] MEDS: DONEPEZIL HCL 5MG TABLET PO SCH (09:00)
[2022-10-04] MEDS: KCL 20MEQ/100ML PREMIX 100 ML IV SCH ×2 (11:32→16:47)
[2022-10-04] MEDS ORDERED: MIDAZOLAM 100MG/100ML PMX 100 ML IV PRN (12:30)
[2022-10-04] MEDS ORDERED: FENTANYL 2500MCG/250ML PMX 250 ML IV ONE (12:30)
[2022-10-04] MEDS ORDERED: MIDAZOLAM HCL 100 MG in SODIUM CHLORIDE 0.9% 100 ML IV PRN (12:30)
[2022-10-04] MEDS ORDERED: VANCOMYCIN 1G PREMIX 200 ML IV SCH (12:45)
[2022-10-04] MEDS ORDERED: SODIUM CHLORIDE 0.9% 1,000 ML IV ONE (13:00)
[2022-10-04 13:07] LABS: HEMATOCRIT. 31.2 % (42.0-52.0); HEMOGLOBIN. 10.3 g/dL (14.0-18.0); MEAN CORPUSCULAR HEMOGLOBIN 29.4 pg (28.0-32.0); MEAN CORPUSCULAR VOLUME 88.8 fL (80.0-94.0); MEAN PLATELET VOLUME 9.8 fl (7.4-10.4); PLATELET 102 x1000/uL (130-400); RED BLOOD CELL COUNT 3.51 mill/uL (4.7-6.1); RED CELL DISTRIBUTION WIDTH 13.2 % (11.6-14.6)
[2022-10-04 13:58] LABS: PLATELET ESTIMATE DECREASED
[2022-10-04] MEDS ORDERED: VANCOMYCIN 750MG PREMIX 150 ML IV SCH (14:00)
[2022-10-04] MEDS ORDERED: ETOMIDATE 2MG/ML 10ML VIAL IV ONE (14:20)
[2022-10-04] MEDS ORDERED: SUCCINYLCHOLINE CHLORIDE 200MG/10ML IV ONE (14:20)
[2022-10-04 14:25] LABS: CHLORIDE 117 mEq/L (98-107)
[2022-10-04 14:34] LABS: PHOSPHORUS 2.6 mg/dL (2.5-4.9)
[2022-10-04 14:38] LABS: PLATELET ESTIMATE NORMAL
[2022-10-04 14:40] LABS: BG CARBOXYHEMOGLOBIN 0.3 % (0.5-1.5); BG DEOXYHEMOGLOBIN 0.4 % (0.0-5.0); BG FRACTION INSPIRED OXYGEN 100; BG METHEMOGLOBIN 0.3 % (0.0-1.5); BG OXYGEN SATURATION 99.6 % (92.0-98.5); BG PCO2 26.4 mmHg (35.0-45.0); BG PH 7.497 (7.350-7.450); BG PO2 556.9 mmHg (75.0-100.0); BG SAMPLE SITE RIGHT BRACHIAL; BG TOTAL HEMOGLOBIN 12.1 g/dL (12.0-18.0); BG VENT MODE VENT - AC
[2022-10-04] MEDS: PIPERACILLIN/TAZOBACTAM 3.375 G in DEXTROSE 5% WATER 50 ML IV SCH ×2 (16:47→22:56)
[2022-10-04] MEDS: PHENYLEPHRINE 100 MG in DEXT 5% WATER 240 ML IV PRN (19:11)
[2022-10-04] MEDS: FENTANYL CITRATE 2,500 MCG in SODIUM CHLORIDE 0.9% 200 ML IV PRN (19:12)
[2022-10-04 20:25] LABS: CLARITY URINE CLOUDY (CLEAR); COLOR URINE DARK YELLOW (YELLOW); KETONES URINE 1+ (NEGATIVE); LEUKOCYTE ESTERASE URINE TRACE (NEGATIVE); NITRITE URINE NEGATIVE (NEGATIVE); OCCULT BLOOD URINE 2+ (NEGATIVE); PROTEIN URINE 2+ (NEGATIVE); SPECIFIC GRAVITY URINE 1.014 (1.005-1.030)
[2022-10-05] VITALS (84 sets, daily range): BP systolic 83–133; BP diastolic 25–109
[2022-10-05] MEDS: PANTOPRAZOLE SODIUM 40 MG/VIAL IV SCH ×2 (03:00→14:08)
[2022-10-05] MEDS: PIPERACILLIN/TAZOBACTAM 3.375 G in DEXTROSE 5% WATER 50 ML IV SCH ×2 (05:24→17:32)
[2022-10-05] MEDS: PHENYLEPHRINE 100 MG in DEXT 5% WATER 240 ML IV PRN (08:38)
[2022-10-05] MEDS: DONEPEZIL HCL 5MG TABLET PO SCH (08:38)
[2022-10-05] MEDS: AMLODIPINE 10MG TABLET PO SCH (08:39)
[2022-10-05] MEDS: DEXT 5%/0.45% NACL 1000ML 1,000 ML IV SCH ×2 (08:39→13:06)
[2022-10-05 08:44] LABS: BG BASE EXCESS -0.1 mmol/L (-2.0-2.0); BG CARBOXYHEMOGLOBIN 0.2 % (0.5-1.5); BG DEOXYHEMOGLOBIN 0.7 % (0.0-5.0); BG FRACTION INSPIRED OXYGEN 40; BG HCO3 ACT 23.5 mmol/L (22.0-26.0); BG METHEMOGLOBIN 0.4 % (0.0-1.5); BG OXYGEN SATURATION 99.3 % (92.0-98.5); BG OXYHEMOGLOBIN 98.7 % (94.0-97.0); BG PCO2 34.7 mmHg (35.0-45.0); BG PH 7.448 (7.350-7.450); BG PO2 171.1 mmHg (75.0-100.0); BG SAMPLE SITE RIGHT RADIAL; BG TOTAL HEMOGLOBIN 12.1 g/dL (12.0-18.0); BG VENT MODE VENT - AC
[2022-10-05 09:53] LABS: HEMOGLOBIN. 11.1 g/dL (14.0-18.0); MEAN CORPUSCULAR HEMOGLOBIN 29.2 pg (28.0-32.0); MEAN CORPUSCULAR VOLUME 86.8 fL (80.0-94.0); MEAN PLATELET VOLUME 10.2 fl (7.4-10.4); PLATELET 107 x1000/uL (130-400); RED CELL DISTRIBUTION WIDTH 13.3 % (11.6-14.6)
[2022-10-05 10:22] LABS: PLATELET ESTIMATE DECREASED
[2022-10-05] MEDS: MIDODRINE HCL 5MG TABLET PO SCH ×3 (11:09→17:32)
[2022-10-05] MEDS ORDERED: VANCOMYCIN 750MG PREMIX 150 ML IV NR (16:00)
[2022-10-06] VITALS (78 sets, daily range): BP systolic 94–145; BP diastolic 54–101
[2022-10-06] MEDS: PANTOPRAZOLE SODIUM 40 MG/VIAL IV SCH ×2 (01:26→15:04)
[2022-10-06] MEDS: DEXT 5%/0.45% NACL 1000ML 1,000 ML IV SCH ×3 (04:40→22:00)
[2022-10-06 05:43] LABS: HEMATOCRIT. 29.2 % (42.0-52.0); HEMOGLOBIN. 10.1 g/dL (14.0-18.0); MEAN CORPUSCULAR HEMOGLOBIN 30.1 pg (28.0-32.0); MEAN CORPUSCULAR VOLUME 86.6 fL (80.0-94.0); MEAN PLATELET VOLUME 11.4 fl (7.4-10.4); PLATELET 102 x1000/uL (130-400); RED BLOOD CELL COUNT 3.37 mill/uL (4.7-6.1); RED CELL DISTRIBUTION WIDTH 12.7 % (11.6-14.6)
[2022-10-06] MEDS: PIPERACILLIN/TAZOBACTAM 3.375 G in DEXTROSE 5% WATER 50 ML IV SCH (06:25)
[2022-10-06 09:46] LABS: PLATELET ESTIMATE DECREASED
[2022-10-06] MEDS ORDERED: POTASSIUM PHOS,M-BASIC-D-BASIC 20 MMOL in DEXT 5% WATER 243.3333 ML IV NR (10:00)
[2022-10-06 10:01] LABS: BG CARBOXYHEMOGLOBIN 0.3 % (0.5-1.5); BG DEOXYHEMOGLOBIN 1.4 % (0.0-5.0); BG FRACTION INSPIRED OXYGEN 30; BG HCO3 ACT 22.2 mmol/L (22.0-26.0); BG METHEMOGLOBIN 0.3 % (0.0-1.5); BG OXYGEN SATURATION 98.6 % (92.0-98.5); BG PO2 147.1 mmHg (75.0-100.0); BG SAMPLE SITE RIGHT RADIAL; BG TOTAL HEMOGLOBIN 10.7 g/dL (12.0-18.0); BG VENT MODE VENT - AC
[2022-10-06] MEDS: DONEPEZIL HCL 5MG TABLET PO SCH (10:25)
[2022-10-06] MEDS: MIDODRINE HCL 5MG TABLET PO SCH ×2 (10:29→14:58)
[2022-10-06] MEDS ORDERED: POTASSIUM CHLORIDE INJ 40 MEQ in DEXT 5% WATER 250 ML IV ONE (13:00)
[2022-10-06] MEDS: CEFTRIAXONE 1,000 MG in DEXTROSE 5% WATER 50 ML IV SCH (14:41)
[2022-10-06] MEDS: KCL 20MEQ/100ML X 2 FOR TOTAL KCL 40MEQ/200ML IV SCH ×2 (14:41→15:04)
[2022-10-06] MEDS: METRONIDAZOLE 500MG TABLET PO SCH ×2 (14:54→21:23)
[2022-10-06] MEDS ORDERED: VANCOMYCIN 750MG PREMIX 150 ML IV NR (17:00)
[2022-10-06] MEDS: PHENYLEPHRINE 100 MG in DEXT 5% WATER 240 ML IV PRN (21:23)
[2022-10-06] MEDS: FENTANYL CITRATE 2,500 MCG in SODIUM CHLORIDE 0.9% 200 ML IV PRN (22:00)
[2022-10-07] VITALS (91 sets, daily range): BP systolic 65–153; BP diastolic 21–98
[2022-10-07] MEDS: PANTOPRAZOLE SODIUM 40 MG/VIAL IV SCH ×2 (02:46→13:30)
[2022-10-07 04:48] LABS: BASOPHILS % 0.1 % (0.0-2.0); EOSINOPHILS % 0.4 % (0.0-5.0); HEMATOCRIT. 27.5 % (42.0-52.0); HEMOGLOBIN. 9.3 g/dL (14.0-18.0); LYMPHOCYTES % 7.2 % (20.0-50.0); MEAN CORPUSCULAR HEMOGLOBIN 29.2 pg (28.0-32.0); MEAN CORPUSCULAR VOLUME 86.6 fL (80.0-94.0); MEAN PLATELET VOLUME 10.6 fl (7.4-10.4); MONOCYTES % 7.1 % (2.0-8.0); NEUTROPHILS % 85.2 % (40.0-76.0); PLATELET 105 x1000/uL (130-400); RED BLOOD CELL COUNT 3.17 mill/uL (4.7-6.1); RED CELL DISTRIBUTION WIDTH 13.1 % (11.6-14.6)
[2022-10-07] MEDS: METRONIDAZOLE 500MG TABLET PO SCH ×3 (05:48→22:25)
[2022-10-07 05:52] LABS: CHLORIDE 108 mEq/L (98-107)
[2022-10-07 06:11] LABS: PHOSPHORUS 2.3 mg/dL (2.5-4.9)
[2022-10-07 08:08] LABS: BG BASE EXCESS 2.2 mmol/L (-2.0-2.0); BG DEOXYHEMOGLOBIN 1.2 % (0.0-5.0); BG METHEMOGLOBIN 0.3 % (0.0-1.5); BG OXYGEN SATURATION 98.8 % (92.0-98.5); BG OXYHEMOGLOBIN 98.5 % (94.0-97.0); BG PCO2 32.8 mmHg (35.0-45.0); BG PO2 142.9 mmHg (75.0-100.0); BG SAMPLE SITE RIGHT BRACHIAL; BG TOTAL HEMOGLOBIN 11.2 g/dL (12.0-18.0); BG VENT MODE VENT - AC
[2022-10-07] MEDS ORDERED: VANCOMYCIN 1G PREMIX 200 ML IV SCH (10:00)
[2022-10-07] MEDS: MIDODRINE HCL 5MG TABLET PO SCH ×4 (10:12→16:38)
[2022-10-07] MEDS: DEXT 5%/0.45% NACL 1000ML 1,000 ML IV SCH ×2 (10:12→20:40)
[2022-10-07] MEDS: DONEPEZIL HCL 5MG TABLET PO SCH (10:15)
[2022-10-07] MEDS ORDERED: POTASSIUM PHOS,M-BASIC-D-BASIC 20 MMOL in DEXT 5% WATER 243.3333 ML IV NR (11:00)
[2022-10-07 11:26] LABS: BG BASE EXCESS 4.6 mmol/L (-2.0-2.0); BG DEOXYHEMOGLOBIN 0.7 % (0.0-5.0); BG FRACTION INSPIRED OXYGEN 40; BG HCO3 ACT 27.4 mmol/L (22.0-26.0); BG METHEMOGLOBIN 0.6 % (0.0-1.5); BG OXYGEN SATURATION 99.3 % (92.0-98.5); BG OXYHEMOGLOBIN 98.7 % (94.0-97.0); BG PCO2 34.3 mmHg (35.0-45.0); BG PH 7.521 (7.350-7.450); BG SAMPLE SITE RIGHT RADIAL; BG TOTAL HEMOGLOBIN 10.8 g/dL (12.0-18.0); BG VENT MODE VENT - CPAP
[2022-10-07] MEDS: CEFTRIAXONE 1,000 MG in DEXTROSE 5% WATER 50 ML IV SCH (13:30)
[2022-10-08] VITALS (42 sets, daily range): BP systolic 69–156; BP diastolic 23–124
[2022-10-08] MEDS: PANTOPRAZOLE SODIUM 40 MG/VIAL IV SCH ×2 (01:39→14:07)
[2022-10-08 04:35] LABS: HEMATOCRIT. 27.9 % (42.0-52.0); HEMOGLOBIN. 9.6 g/dL (14.0-18.0); MEAN CORPUSCULAR HEMOGLOBIN 29.7 pg (28.0-32.0); MEAN CORPUSCULAR VOLUME 85.9 fL (80.0-94.0); MEAN PLATELET VOLUME 10.4 fl (7.4-10.4); PLATELET 125 x1000/uL (130-400); RED BLOOD CELL COUNT 3.25 mill/uL (4.7-6.1); RED CELL DISTRIBUTION WIDTH 12.8 % (11.6-14.6)
[2022-10-08 04:43] LABS: CHLORIDE 108 mEq/L (98-107)
[2022-10-08 04:50] LABS: PHOSPHORUS 2.2 mg/dL (2.5-4.9)
[2022-10-08] MEDS: METRONIDAZOLE 500MG TABLET PO SCH ×3 (05:26→21:42)
[2022-10-08] MEDS: DEXT 5%/0.45% NACL 1000ML 1,000 ML IV SCH ×2 (07:37→17:35)
[2022-10-08 07:49] LABS: BG BASE EXCESS -0.1 mmol/L (-2.0-2.0); BG CARBOXYHEMOGLOBIN 0.2 % (0.5-1.5); BG DEOXYHEMOGLOBIN 2.5 % (0.0-5.0); BG HCO3 ACT 22.2 mmol/L (22.0-26.0); BG OXYGEN SATURATION 97.5 % (92.0-98.5); BG OXYHEMOGLOBIN 97.3 % (94.0-97.0); BG PCO2 28.3 mmHg (35.0-45.0); BG PH 7.513 (7.350-7.450); BG PO2 97.4 mmHg (75.0-100.0); BG SAMPLE SITE RIGHT BRACHIAL; BG TOTAL HEMOGLOBIN 9.6 g/dL (12.0-18.0); BG VENT MODE ROOM AIR
[2022-10-08] MEDS: MIDODRINE HCL 5MG TABLET PO SCH ×3 (08:18→17:00)
[2022-10-08] MEDS: DONEPEZIL HCL 5MG TABLET PO SCH (08:18)
[2022-10-08 09:40] LABS: PLATELET ESTIMATE SLIGHTLY DECREASED
[2022-10-08] MEDS ORDERED: VANCOMYCIN 750MG PREMIX 150 ML IV SCH (12:00)
[2022-10-08] MEDS: CEFTRIAXONE 1,000 MG in DEXTROSE 5% WATER 50 ML IV SCH (13:48)
[2022-10-09] VITALS: BP 152/92
[2022-10-09] MEDS: PANTOPRAZOLE SODIUM 40 MG/VIAL IV SCH ×2 (02:57→15:35)
[2022-10-09] MEDS: DEXT 5%/0.45% NACL 1000ML 1,000 ML IV SCH ×2 (02:58→12:40)
[2022-10-09 04:00] VITALS: BP 134/78
[2022-10-09 06:44] LABS: HEMATOCRIT. 28.7 % (42.0-52.0); HEMOGLOBIN. 10.2 g/dL (14.0-18.0); MEAN CORPUSCULAR HEMOGLOBIN 30.3 pg (28.0-32.0); MEAN CORPUSCULAR VOLUME 85.4 fL (80.0-94.0); MEAN PLATELET VOLUME 9.9 fl (7.4-10.4); PLATELET 197 x1000/uL (130-400); RED BLOOD CELL COUNT 3.36 mill/uL (4.7-6.1); RED CELL DISTRIBUTION WIDTH 12.9 % (11.6-14.6)
[2022-10-09 07:29] LABS: CHLORIDE 106 mEq/L (98-107)
[2022-10-09] MEDS: METRONIDAZOLE 500MG TABLET PO SCH ×3 (07:43→21:51)
[2022-10-09 08:00] VITALS: BP 138/69
[2022-10-09] MEDS: MIDODRINE HCL 5MG TABLET PO SCH ×3 (08:39→18:09)
[2022-10-09] MEDS: DONEPEZIL HCL 5MG TABLET PO SCH (08:39)
[2022-10-09 08:54] LABS: PHOSPHORUS 2.4 mg/dL (2.5-4.9)
[2022-10-09] MEDS ORDERED: POTASSIUM-SODIUM PHOSPHATE POWDER PACKET PO NR (10:00)
[2022-10-09] MEDS ORDERED: MAGNESIUM 2 G PREMIX 50 ML IV NR (11:00)
[2022-10-09 12:00] VITALS: BP 105/69
[2022-10-09 14:08] LABS: PLATELET ESTIMATE NORMAL
[2022-10-09] MEDS: CEFTRIAXONE 1,000 MG in DEXTROSE 5% WATER 50 ML IV SCH (15:36)
[2022-10-09 16:00] VITALS: BP 130/82
[2022-10-09 20:00] VITALS: BP 132/67
[2022-10-10] VITALS: BP 144/81
[2022-10-10] MEDS: DEXT 5%/0.45% NACL 1000ML 1,000 ML IV SCH ×2 (02:31→08:40)
[2022-10-10] MEDS: PANTOPRAZOLE SODIUM 40 MG/VIAL IV SCH (02:31)
[2022-10-10 04:00] VITALS: BP 158/74
[2022-10-10] MEDS: METRONIDAZOLE 500MG TABLET PO SCH (06:26)
[2022-10-10 07:27] LABS: HEMOGLOBIN. 10.2 g/dL (14.0-18.0); MEAN CORPUSCULAR HEMOGLOBIN 30.1 pg (28.0-32.0); MEAN CORPUSCULAR VOLUME 85.1 fL (80.0-94.0); MEAN PLATELET VOLUME 9.1 fl (7.4-10.4); PLATELET 306 x1000/uL (130-400); RED BLOOD CELL COUNT 3.41 mill/uL (4.7-6.1); RED CELL DISTRIBUTION WIDTH 12.7 % (11.6-14.6)
[2022-10-10 08:00] VITALS: BP 125/90
[2022-10-10 08:02] LABS: CHLORIDE 106 mEq/L (98-107)
[2022-10-10] MEDS: DONEPEZIL HCL 5MG TABLET PO SCH (10:26)
[2022-10-10] MEDS: MIDODRINE HCL 5MG TABLET PO SCH (10:33)
[2022-10-10 12:24] VITALS: BP 114/63
[2022-10-10 13:52] LABS: PLATELET ESTIMATE NORMAL
== END 2022-10-10 13:50 | disposition hospice, home (50) | DRG 871 ==
LOC: ER 09:46 → 7WST 11:00 → EDBEDREQSVC 21:52 → MICUSO 10-04 13:30 → 7WST 10-04 14:17 → MICUSO 10-04 14:20 → 3WST 10-08 09:52
PROVIDERS: ADMIT Hospitalist; ATTEND Hospitalist
PROC: 5A1945Z Respiratory Ventilation, 24-96 Consecutive Hours (ICD-10-PCS; principal; 2022-10-04)
PROC: 0BH17EZ Insertion of Endotracheal Airway into Trachea, Via Natural or Artificial Opening (ICD-10-PCS; 2022-10-04)
DX: A41.59 Other Gram-negative sepsis (principal); G92.8 Other toxic encephalopathy; J96.01 Acute respiratory failure with hypoxia; R65.21 Severe sepsis with septic shock; J69.0 Pneumonitis due to inhalation of food and vomit; E87.0 Hyperosmolality and hypernatremia; N17.9 Acute kidney failure, unspecified; N39.0 Urinary tract infection, site not specified; E87.20 Acidosis, unspecified; M62.82 Rhabdomyolysis; F03.94 Unspecified dementia, unspecified severity, with anxiety; K62.5 Hemorrhage of anus and rectum; Z20.822 Contact with and (suspected) exposure to COVID-19; N28.1 Cyst of kidney, acquired; I10 Essential (primary) hypertension; F03.90 Unspecified dementia, unspecified severity, without behavioral disturbance, psychotic disturbance, mood disturbance, and anxiety; E86.0 Dehydration; J44.9 Chronic obstructive pulmonary disease, unspecified; E83.42 Hypomagnesemia; E83.39 Other disorders of phosphorus metabolism; D64.9 Anemia, unspecified; B96.1 Klebsiella pneumoniae [K. pneumoniae] as the cause of diseases classified elsewhere; Z78.1 Physical restraint status; Z87.440 Personal history of urinary (tract) infections; Z79.82 Long term (current) use of aspirin; Z79.899 Other long term (current) drug therapy
CPT/HCPCS: 31500; 36415; 36600; 71045; 74176; 80048; 80053; 80061; 80076; 80202; 80320; 81003; 82040; 82140; 82375; 82550; 82607; 82728; 82746; 82805; 82962; 83540; 83550; 83605; 83735; 84100; 84134; 84145; 84484; 85014; 85018; 85025; 85044; 85379; 86850; 86900; 87015; 87045; 87070; 87077; 87186; 87426; 87427; 87449; 89055; 92610; 93005; 93970; 94002; 94003; 99291; A6261; C9113; C9803; J0330; J0696; J2060; J2370; J2543; J3370; J3475; J3480; J3490; J7060; Q9967; A4315; G0480